=== PATIENT | female | born 1935 | race Caucasian/White ===

== ENCOUNTER → 2017-10-21 | Outpatient (CLI) | payer OTHER | LOC: FIMAGING 13:47 | PROVIDERS: ATTEND Internal Medicine | DX: Z12.31 Encounter for screening mammogram for malignant neoplasm of breast (principal) ==

== ENCOUNTER → 2018-03-05 | Outpatient (CLI) | payer OTHER | LOC: FIMAGING 10:54 | PROVIDERS: ATTEND Physical Medicine & Rehabilitation | DX: Z13.820 Encounter for screening for osteoporosis (principal); M81.0 Age-related osteoporosis without current pathological fracture; Z78.0 Asymptomatic menopausal state ==

== ENCOUNTER → 2018-03-09 | Outpatient (CLI) | payer OTHER | LOC: FIMAGING 09:18 | PROVIDERS: ATTEND Physical Medicine & Rehabilitation | DX: M53.3 Sacrococcygeal disorders, not elsewhere classified (principal); M46.97 Unspecified inflammatory spondylopathy, lumbosacral region; M16.11 Unilateral primary osteoarthritis, right hip | CPT/HCPCS: 78300; A9503 ==

== ENCOUNTER → 2018-03-24 | Outpatient (CLI) | payer OTHER | LOC: FIMAGING 13:39 | PROVIDERS: ATTEND Physical Medicine & Rehabilitation | DX: M16.11 Unilateral primary osteoarthritis, right hip (principal); M53.86 Other specified dorsopathies, lumbar region; Z96.642 Presence of left artificial hip joint ==

== ENCOUNTER 2018-05-13 02:23 | Emergency (ER) | payer OTHER ==
[2018-05-13] MEDS ORDERED: TRANEXAMIC ACID 1,000 MG/10 ML VIAL TP ONE (02:37)
--- NOTE | 2018-05-13 03:00 | EDPHY ---
H & P Stated Complaint: Nosebleed since 89, on warfarin Time Seen by Provider: 05/13/18 02:30 HPI/ROS: HPI The patient presents with nose bleed which began at about 1:00 a.m. This morning. She awoke with a feeling of blood dripping down the back of her throat. She then noticed that her left nose was bleeding. She is on Coumadin for prior DVT. She has no prior history of epistaxis. She does not report any picking of her nose. She did take a dose of ibuprofen today. REVIEW OF SYSTEMS 10 systems were reviewed and negative with the exception of the elements mentioned in the history of present illness. PMHx: DVT on Coumadin Soc Hx: Here with her daughter PHYSICAL General Appearance: Alert, no distress Eyes: Pupils equal and round no pallor or injection ENT, Mouth: Mucous membranes moist, left naris with ongoing active bleeding, right naris with mild bleeding Respiratory: Breathing comfortably Neurological: A&O, moves all extremities Skin: Warm and dry, no rashes Extremities: symmetrical, full range of motion Psychiatric: Patient is oriented X 3, there is no agitation Source: Patient Exam Limitations: No limitations - Personal History Current Tetanus Diphtheria and Acellular Pertussis (TDAP): Yes - Medical/Surgical History Hx Asthma: No Hx Chronic Respiratory Disease: No Hx Diabetes: No Hx Cardiac Disease: No Hx Renal Disease: No Hx Cirrhosis: No Hx Alcoholism: No Hx HIV/AIDS: No Hx Splenectomy or Spleen Trauma: No Other PMH: hypothyroid HIP REPLACEMENT-- BLD CLOT TO LEGS - Social History Smoking Status: Never smoked Constitutional: Initial Vital Signs Temperature (C) 36.5 C 05/13/18 02:31 Heart Rate 90 05/13/18 02:31 Respiratory Rate 18 05/13/18 02:31 Blood Pressure 163/101 H 05/13/18 02:31 O2 Sat (%) 93 05/13/18 02:31 O2 Delivery Mode Room Air Allergies/Adverse Reactions: No Known Allergies Allergy (Verified 05/13/18 02:29) Home Medications: Medication Instructions Recorded Calcium Carbonate [Tums 500MG 500 mg PO DAILY 06/26/13 (OTC)] Cholecalciferol Vit D3 [Vitamin D3 1,000 units PO DAILY 06/26/13 1000 units (OTC)] Levothyroxine [Synthroid 75 mcg 75 mcg PO DAILY06 06/26/13 (RX)] Docusate Sodium [Colace] 09/17/13 Amoxicillin/Clavulanate Pot 875 mg PO BID #14 tab 05/13/18 [Augmentin 875 MG TAB (*)] Flomax 05/13/18 Warfarin Sodium 05/13/18 Medical Decision Making Procedures: NOSE BLEED Procedure: Epistaxis control. Indication: nosebleed not controlled by direct pressure. Risks, benefits, alternatives discussed with patient and consent obtained. The left nares was anesthetized with lidocaine with epinephrine. The anterior epistaxis was identified. The patient was treated with packing using Merocel 8 cm impregnated with TXA. Following the procedure the patient was re- examined and the bleeding was well controlled. The patient tolerated the procedure well. The procedure was performed by myself. Differential Diagnosis: 83-year-old female on Coumadin for prior DVT several years ago presents with left-sided epistaxis since 1:00 a.m. Which started spontaneously. She has ongoing bleeding here. I initially packed her left naris with a T ex a impregnated Merocel. This slowed the bleeding. I was able to remove it and looked for any source of bleeding or clot and did not located. However, the bleeding recurred. Because of this I placed a anterior rhino rocket. This resulted in appropriate hemostasis. I have discharged the patient with instructions for ENT follow-up. She will stop her Coumadin and I have started her on Augmentin. She is to call for a follow-up appointment within the next few days. She is happy with this plan. - Data Points Medications Given: Discontinued Medications Tranexamic Acid (Cyklokapron) 500 mg TP EDNOW ONE Stop: 05/13/18 02:38 Last Admin: 05/13/18 02:41 Dose: 500 mg Departure - Departure Disposition: Home, Routine, Self-Care Clinical Impression: Epistaxis Condition: Good Instructions: Nosebleed (ED) Additional Instructions: Please hold your Coumadin for the next 4-5 days or until your evaluated by the ENT. Return to the emergency department if worse in any way. Referrals: Paty Cerda MD [Primary Care Provider] - As per Instructions Prescriptions: Amoxicillin/Clavulanate Pot [Augmentin 875 MG TAB (*)] 875 mg PO BID #14 tab
[2018-05-13] MEDS ORDERED: SILVER NITRATE APPLICATOR 1 APPL TP ONE (03:17)
[2018-05-13 04:07] VITALS: BP 148/91
== END 2018-05-13 04:07 | disposition home or self-care (01) ==
PROC: 2Y41X5Z Packing of Nasal Region using Packing Material (ICD-10-PCS; principal; 2018-05-13)
DX: R04.0 Epistaxis (principal); E03.9 Hypothyroidism, unspecified; Z79.01 Long term (current) use of anticoagulants

== ENCOUNTER → 2018-06-12 | Outpatient (CLI) | payer OTHER | LOC: FIMAGING 14:43 | PROVIDERS: ATTEND Physical Medicine & Rehabilitation | DX: M51.36 Other intervertebral disc degeneration, lumbar region (principal); M51.06 Intervertebral disc disorders with myelopathy, lumbar region ==

== ENCOUNTER → 2018-11-16 | Outpatient (CLI) | payer OTHER | LOC: FIMAGING 12:33 ==